=== PATIENT | female | born 1935 | race Caucasian/White ===

== ENCOUNTER 2017-09-08 16:35 | Observation (INO) | payer OTHER, MEDICARE ==
--- NOTE | 2017-09-08 16:41 | PDOC ---
Rapid Medical Evaluation Medical Evaluation: Allergies Allergy/AdvReac Type Severity Reaction Status Date / Time No Known Drug Allergies Allergy Verified 05/10/16 08:00 09/08/17 16:37 I have performed a brief in-person evaluation of this patient. The patient presents with a chief complaint of: throat pain radiating to chest and upper abd x 2 hrs prior to arrival, since improved. H/o thoracic aneurysm ( 4.[address] 02/09), HTN. Sent in by Dr Tasha Saldivar Pertinent physical exam findings:BP 158/109, HR 123, chest/lungs clear otherwise I have ordered the following:labs/cxr/labs/CTA The patient will proceed to the ED for further evaluation.
--- NOTE | 2017-09-08 16:48 | PDOC ---
Attending Attestation - Resident Resident Name: Adriane Lipscomb - ED Attending Attestation I have performed the following: I have examined & evaluated the patient, The case was reviewed & discussed with the resident, I agree w/resident's findings & plan, Exceptions are as noted - HPI HPI: 82 yo F history thoracic aneurysm presents with neck pain radiating to the chest. Associated with palpitations. No cough, fever. Sent by PMD for evaluation. - Physicial Exam PE: GENERAL: Awake, alert, and fully oriented, in no acute distress HEAD: No signs of trauma EYES: PERRLA, EOMI, sclera anicteric, conjunctiva clear ENT: Auricles normal inspection, hearing grossly normal, nares patent, oropharynx clear without exudates. Moist mucosa NECK: Normal ROM, supple, no lymphadenopathy, JVD, or masses LUNGS: Breath sounds equal, clear to auscultation bilaterally. No wheezes, and no crackles HEART: +Tachycardia, normal S1 and S2, no murmurs, rubs or gallops ABDOMEN: Soft, nontender, normoactive bowel sounds. No guarding, no rebound. No masses EXTREMITIES: Normal range of motion, no edema. No clubbing or cyanosis. No cords, erythema, or tenderness NEUROLOGICAL: Cranial nerves II through XII grossly intact. Normal speech, normal gait SKIN: Warm, Dry, normal turgor, no rashes or lesions noted. - Medical Decision Making 09/08/17 17:39 Pt with history of thoracic aortic aneurysm presents with neck pain radiating to chest. Will obtain emergent CTA to r/o ruptured aneurysm.
--- NOTE | 2017-09-08 16:56 | PDOC ---
History of Present Illness - General Chief Complaint: Chest Pain Stated Complaint: PCP SENT Time Seen by Provider: 09/08/17 16:45 History Source: Patient Exam Limitations: No Limitations - History of Present Illness Initial Comments: This is an 82 YOF with h/o thoracic aortic aneurysm (on CT from 01/2017) and HTN (on losartan and a water pill) who was sent to the ED by per PCP Tasha Saldivar for throat tightness radiating to the chest, upper back, and upper abdomen since 2 hours [employer] with improvement since arriving to the ED. She walked into her PCP's office to be seen because of the pain. She notes that the discomfort has improved since the onset but is still there residually. She notes rapid palpitations, but denies any numbness, tingling, focal weakness, SOB, headache, additional neck pain, vision difficulties, or other symptoms. She has never had this pain before and did not take any medications for her symptoms today. Past History - Past Medical History Allergies/Adverse Reactions: Allergies Allergy/AdvReac Type Severity Reaction Status Date / Time No Known Drug Allergies Allergy Verified 09/08/17 16:44 Home Medications: Ambulatory Orders Cholecalciferol (Vitamin D3) [Vitamin D] 1,000 unit PO DAILY 07/31/12 Hydrochlorothiazide [Hctz -] 25 mg PO DAILY 07/31/12 Losartan Potassium 25 mg PO DAILY tablet 11/04/14 Ferrous Sulfate [Feosol] 325 mg PO DAILY 07/21/15 Multivitamins [Multivit ([facility] Formulary)] 1 tab PO DAILY 07/21/15 Aspirin [ASA -] 325 mg PO DAILY@0800 tablet 05/10/16 Anemia: No Asthma: No Cancer: No Cardiac Disorders: No CVA: No COPD: No CHF: No Dementia: No Diabetes: No GI Disorders: No Disorders: No HTN: Yes Hypercholesterolemia: No Liver Disease: No Seizures: No Thyroid Disease: No - Surgical History Abdominal Surgery: No Appendectomy: No Cardiac Surgery: No Cholecystectomy: No Lung Surgery: No Neurologic Surgery: No Orthopedic Surgery: Yes (LEFT KNEE ARTHROSCOPY) - Suicide/Smoking/Psychosocial Hx Smoking History: Never smoked Have you smoked in the past 12 months: No Hx Alcohol Use: Yes (SOCIALLY) Drug/Substance Use Hx: No Substance Use Type: None Hx Substance Use Treatment: No Cardiac Specific PMH - Complaint Specific PMHX Pacemaker: No Review of Systems - Review of Systems Able to Perform ROS?: Yes Constitutional: No: Chills, Fever, Unexplained wgt Loss HEENTM: No: Nose Congestion, Throat Pain Respiratory: No: Cough, Shortness of Breath Cardiac (ROS): Yes: Chest Pain (upper chest tightness), Palpitations ( intermittent) ABD/GI: No: Constipated, Diarrhea, Nausea, Vomiting : No: Burning, Dysuria Musculoskeletal: Yes: Neck Pain (throat tightness). No: Back Pain Integumentary: No: Bruising, Rash Neurological: No: Headache, Numbness, Tingling, Weakness, Dizziness Endocrine: No: Unexplained Weight Gain, Unexplained Weight Loss *Physical Exam - Vital Signs Last Vital Signs Temp Pulse Resp BP Pulse Ox 98.4 F 115 H 20 163/95 98 09/08/17 19:47 09/08/17 19:47 09/08/17 19:47 09/08/17 19:47 09/08/17 19:47 - Physical Exam General Appearance: Yes: Nourished, Appropriately Dressed, Other (well appearing and nontoxic, answering questions appropriately). No: Apparent Distress HEENT: positive: EOMI, RAYSA, Normal Voice, Hearing Grossly Normal. negative: Scleral Icterus (R), Scleral Icterus (L), Muffled/Hoarse voice, Nasal Congestion Neck: positive: Trachea midline, Supple. negative: Tender, Rigid, Carotid bruit Respiratory/Chest: positive: Lungs Clear, Normal Breath Sounds. negative: Respiratory Distress, Crackles, Rhonchi, Stridor, Wheezing Cardiovascular: positive: Regular Rhythm, S1, S2, Tachycardia, Other (carotid pulses visible). negative: Edema, Murmur Comments:: Radial pulses palpated 2+ equal Gastrointestinal/Abdominal: positive: Normal Bowel Sounds, Flat, Soft. negative : Tender, Organomegaly, Pulsatile Mass, Guarding Musculoskeletal: positive: Normal Inspection. negative: Decreased Range of Motion, Vertebral Tenderness Extremity: positive: Normal Capillary Refill, Normal Inspection, Normal Range of Motion. negative: Tender, Cyanosis Integumentary: positive: Normal Color, Dry, Warm. 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 negative: EOM Palsy, Facial Droop , Confused, Disoriented Heart Score/ECG Review - History History: Moderately suspicious - Electrocardiogram EKG: Normal - Age Age: >/= 65 - Risk Factors Risk Factors Heart Score: Yes Hx Hypertension, Yes Hx Obesity Based on the list above the patient has:: 1-2 risk factors - Troponin Troponin: </= normal limit - Score Heart Score - Total: 4 #1 Sinus tachycardia. ED Treatment Course - LABORATORY CBC & Chemistry Diagram: 09/08/17 16:59 09/08/17 16:59 - ADDITIONAL ORDERS Additional order review: Laboratory Results 09/08/17 09/08/17 09/08/17 17:00 16:59 16:59 PT with INR INR Sodium Potassium Chloride Carbon Dioxide Anion Gap BUN Creatinine Creat Clearance w eGFR Random Glucose Calcium Total Bilirubin AST ALT Alkaline Phosphatase Creatine Kinase Creatine Kinase Index CK-MB (CK-2) Troponin I B-Natriuretic Peptide 181.22 Total Protein Albumin Urine Color Ltyellow Urine Appearance Clear Urine pH 5.0 Ur Specific Jbphh 1.017 Urine Protein Negative Urine Glucose (UA) Negative Urine Ketones Negative Urine Blood 1+ H Urine Nitrite Negative Urine Bilirubin Negative Urine Urobilinogen Negative Ur Leukocyte Esterase 2+ H Urine WBC (Auto) 15 Urine RBC (Auto) 12 Ur Epithelial Cells Rare Urine Mucus Rare Blood Type A POSITIVE Antibody Screen Negative 09/08/17 09/08/17 16:59 16:59 PT with INR Cancelled INR Cancelled Sodium 140 Potassium 3.7 Chloride 105 Carbon Dioxide 27 Anion Gap 8 BUN 22 H Creatinine 0.9 Creat Clearance w eGFR > 60 Random Glucose 100 Calcium 9.6 Total Bilirubin 0.8 AST 18 ALT 21 Alkaline Phosphatase 125 H Creatine Kinase 160 Creatine Kinase Index 2.4 CK-MB (CK-2) 3.892 H Troponin I < 0.02 B-Natriuretic Peptide Total Protein 6.9 Albumin 4.2 Urine Color Urine Appearance Urine pH Ur Specific Jbphh Urine Protein Urine Glucose (UA) Urine Ketones Urine Blood Urine Nitrite Urine Bilirubin Urine Urobilinogen Ur Leukocyte Esterase Urine WBC (Auto) Urine RBC (Auto) Ur Epithelial Cells Urine Mucus Blood Type Antibody Screen 09/08/17 16:59 RBC 4.37 MCV 85.9 MCHC 34.2 RDW 14.8 MPV 9.0 Neutrophils % 77.3 Lymphocytes % 14.2 Monocytes % 7.7 Eosinophils % 0.5 Basophils % 0.3 - Medications Given in the ED: ED Medications Discontinued Medications Generic Name Dose Route Start Last Admin Trade Name Lia PRN Reason Stop Dose Admin Acetaminophen 1,000 mg 09/08/17 21:03 09/08/17 21:36 Ofirmev Injection - IVPB 09/08/17 21:04 1,000 mg ONCE ONE Administration Ceftriaxone Sodium 1 gm 09/08/17 18:25 09/08/17 19:01 Rocephin 1gm Ivpb (Pre-Docked) IVPB 09/08/17 18:26 1 gm ONCE ONE Administration Protocol Sodium Chloride 1,000 ml 09/08/17 17:48 09/08/17 17:57 Normal Saline - IV 09/08/17 17:49 1,000 ml ONCE ONE Administration Medical Decision Making - Medical Decision Making This is an 82 YOF with h/o thoracic aortic aneurysm and HTN who p/w throat tightness radiating to chest and upper back. On exam VS notable for tachycardia, BP 159/109, otherwise VS wnl. She is in NAD, has carotid pulses visible bilaterally inferior neck, tachycardic but regular rhythm, no murmur, no midline pulsatile masses. DDX IBNLT acute expansion of aneurysm, AD, GERD, dysphagia, esophagitis, allergic rxn, [employer] REG[employer]RAR, RPA, etc. Ordered is CBCD CMP Cardiac panel UA Cx Chest/Abdomen CTA EKG 1000cc. 09/08/17 18:16 Chest/Abdomen CTA without acute causative pathology; aortic aneurysm unchanged. HEART score 4-6 and patient will be observed. Spoke with Pt's PCP Katey Saldivar who agrees with plan to obs. She requests patient's care go to hospitalists for this obs admission. 09/08/17 19:06 Microblog sent to [facility] for admission. 09/08/17 21:04 Decision to admit order has been placed to Tele Obs. Patient noting mild headache and Ofirmev order placed. Repeat cardiac enzymes ordered. *DC/Admit/Observation/Transfer Diagnosis at time of Disposition: Thoracic aortic aneurysm without rupture Chest pain Qualifiers: Chest pain type: unspecified Qualified Code(s): R07.9 - Chest pain, unspecified Urinary tract infection Qualifiers: Urinary tract infection type: acute cystitis Hematuria presence: with hematuria Qualified Code(s): N30.01 - Acute cystitis with hematuria - Discharge Dispostion Condition at time of disposition: Guarded Admit: Yes - Referrals - Patient Instructions - Post Discharge Activity
[2017-09-08 17:21] LABS: BASO % 0.3 % (0-2.0); EOS % 0.5 % (0-4.5); HEMATOCRIT 37.5 % (32.4-45.2); HEMOGLOBIN 12.8 GM/dL (10.7-15.3); LYMPH % 14.2 % (8-40); MCH 29.4 pg (25.7-33.7); MCHC 34.2 g/dl (32.0-36.0); MEAN CELL VOLUME 85.9 fl (80-96); MONO % 7.7 % (3.8-10.2); NEUT % 77.3 % (42.8-82.8); PLATELET COUNT 210 K/MM3 (134-434); RBC 4.37 M/mm3 (3.60-5.2); RDW 14.8 % (11.6-15.6); WHITE BLOOD COUNT 10.2 K/mm3 (4.0-10.0)
[2017-09-08 17:25] LABS: URINE APPEARANCE CLEAR; URINE BILIRUBIN NEGATIVE (NEGATIVE); URINE BLOOD 1+ (NEGATIVE); URINE COLOR LTYELLOW; URINE GLUCOSE (UA) NEGATIVE (NEGATIVE); URINE KETONE NEGATIVE (NEGATIVE); URINE NITRITE NEGATIVE (NEGATIVE); URINE PROTEIN NEGATIVE (NEGATIVE); URINE UROBILINOGEN NEGATIVE mg/dL (0.2-1.0)
[2017-09-08 17:30] LABS: URINE LEUK ESTERASE 2+ (NEGATIVE)
[2017-09-08 17:35] LABS: EPI CELLS RARE /HPF (FEW); URINE MUCUS RARE
[2017-09-08 17:44] LABS: ALBUMIN 4.2 g/dl (3.4-5.0); ANION GAP 8 (8-16); BLOOD UREA NITROGEN 22 mg/dL (7-18); CALCIUM 9.6 mg/dL (8.5-10.1); CHLORIDE 105 mmol/L (98-107); CO2 27 mmol/L (21-32); GLUCOSE,RANDOM 100 mg/dL (74-106); POTASSIUM 3.7 mmol/L (3.5-5.1); SGPT/ALT 21 U/L (12-78); SODIUM 140 mmol/L (136-145)
[2017-09-08] MEDS ORDERED: SODIUM CHLORIDE 0.9% 500 ML INFUS.BAG IV ONE (17:48)
[2017-09-08 17:49] LABS: ALK PHOS 125 U/L (45-117); BILIRUBIN,TOTAL 0.8 mg/dL (0.2-1.0); CREATININE 0.9 mg/dL (0.55-1.02); SGOT/AST 18 U/L (15-37); TOT PROT 6.9 g/dl (6.4-8.2)
[2017-09-08] MEDS ORDERED: cefTRIAXone 1 GM/50 ML BAG (PRE-DOCKED) IVPB ONE (18:25)
[2017-09-08] MEDS ORDERED: CEFTRIAXONE 1 GM/50 ML BAG ONE (18:57)
[2017-09-08] MEDS ORDERED: ACETAMINOPHEN 1000 MG/100 ML VIAL (NON FORMULARY) IVPB ONE (21:03)
[2017-09-08] MEDS ORDERED: ACETAMINOPHEN INJECTION 100 ML IVPB ONE (21:31)
--- NOTE | 2017-09-08 22:09 | HP ---
CHIEF COMPLAINT: chest pain PCP: Dr. Amanda Saldivar HISTORY OF PRESENT ILLNESS: 82 year old female with a medical history of HTN; aortic aneurysm, presents to the emergency room with chest pain. Patient was driving to store when all of a sudden she felt "like someone punched me in the chest", this was accompanied with feeling of her throat closing up. This pain/pressure is constant; mid/ upper epigastric region. She denies ABEBE, blurry vision, palpitations, sob, leg swelling. She sates her seat belt may have been too tight. ED course notable for tachycardia. Troponin x1 negative. ECG no st t wave changes. Recent Travel: no PAST MEDICAL HISTORY: HTN PAST SURGICAL HISTORY: Social History: Smoking:no Alcohol:no Drugs: no Family History: Allergies No Known Drug Allergies Allergy (Verified 09/08/17 16:44) HOME MEDICATIONS: Home Medications Medication Instructions Recorded Cholecalciferol (Vitamin D3) 1,000 unit PO DAILY 07/31/12 [Vitamin D] Hydrochlorothiazide [Hctz -] 25 mg PO DAILY 07/31/12 Losartan Potassium 25 mg PO DAILY tablet 11/04/14 Ferrous Sulfate [Feosol] 325 mg PO DAILY 07/21/15 Multivitamins [Multivit ([facility] 1 tab PO DAILY 07/21/15 Formulary)] Aspirin [ASA -] 325 mg PO DAILY@0800 tablet 05/10/16 REVIEW OF SYSTEMS as above PHYSICAL EXAMINATION Vital Signs - 24 hr 09/08/17 09/08/17 16:35 19:47 Temperature 98.1 F 98.4 F Pulse Rate 123 H Pulse Rate [ 115 H Apical] Respiratory 18 20 Rate Blood Pressure 159/109 Blood Pressure 163/95 [Left Arm] O2 Sat by Pulse 97 98 Oximetry (%) GENERAL: Awake, alert, and fully oriented, in no acute distress. HEAD: Normal with no signs of trauma. LUNGS: Breath sounds equal, RLL crackels HEART: Regular rate and rhythm, normal S1 and S2 without murmur, rub or gallop. ABDOMEN: Soft, nontender, not distended, normoactive bowel sounds, no guarding, no rebound, no masses. No hepatomegaly or splenomegaly. MUSCULOSKELETAL: Normal range of motion at all joints. No bony deformities or tenderness. No CVA tenderness. UPPER EXTREMITIES: 2+ pulses, warm, well-perfused. No cyanosis. No clubbing. No peripheral edema. LOWER EXTREMITIES: 2+ pulses, warm, well-perfused. No calf tenderness. trace LE edema bl. Laboratory Results - last 24 hr 09/08/17 09/08/17 09/08/17 16:59 16:59 16:59 WBC 10.2 H RBC 4.37 Hgb 12.8 Hct 37.5 MCV 85.9 MCH 29.4 MCHC 34.2 RDW 14.8 Plt Count 210 MPV 9.0 Neutrophils % 77.3 Lymphocytes % 14.2 Monocytes % 7.7 Eosinophils % 0.5 Basophils % 0.3 PT with INR Cancelled INR Cancelled Sodium 140 Potassium 3.7 Chloride 105 Carbon Dioxide 27 Anion Gap 8 BUN 22 H Creatinine 0.9 Creat Clearance w eGFR > 60 Random Glucose 100 Calcium 9.6 Total Bilirubin 0.8 AST 18 ALT 21 Alkaline Phosphatase 125 H Creatine Kinase 160 Creatine Kinase Index 2.4 CK-MB (CK-2) 3.892 H Troponin I < 0.02 B-Natriuretic Peptide Total Protein 6.9 Albumin 4.2 Urine Color Urine Appearance Urine pH Ur Specific Hanna Urine Protein Urine Glucose (UA) Urine Ketones Urine Blood Urine Nitrite Urine Bilirubin Urine Urobilinogen Ur Leukocyte Esterase Urine WBC (Auto) Urine RBC (Auto) Ur Epithelial Cells Urine Mucus Blood Type Antibody Screen 09/08/17 09/08/17 09/08/17 16:59 16:59 17:00 WBC RBC Hgb Hct MCV MCH MCHC RDW Plt Count MPV Neutrophils % Lymphocytes % Monocytes % Eosinophils % Basophils % PT with INR INR Sodium Potassium Chloride Carbon Dioxide Anion Gap BUN Creatinine Creat Clearance w eGFR Random Glucose Calcium Total Bilirubin AST ALT Alkaline Phosphatase Creatine Kinase Creatine Kinase Index CK-MB (CK-2) Troponin I B-Natriuretic Peptide 181.22 Total Protein Albumin Urine Color Ltyellow Urine Appearance Clear Urine pH 5.0 Ur Specific Hanna 1.017 Urine Protein Negative Urine Glucose (UA) Negative Urine Ketones Negative Urine Blood 1+ H Urine Nitrite Negative Urine Bilirubin Negative Urine Urobilinogen Negative Ur Leukocyte Esterase 2+ H Urine WBC (Auto) 15 Urine RBC (Auto) 12 Ur Epithelial Cells Rare Urine Mucus Rare Blood Type A POSITIVE Antibody Screen Negative CT angiogram with and without contrast As on a previous chest CT exam of a 08/24/2016 there is mild fusiform aneurysmal dilatation of the ascending aorta and proximal aortic arch with a 4.3 cm maximum diameter. Continued periodic imaging surveillance is suggested unless otherwise clinically indicated. No CT evidence of aortic dissection. There is no abdominal aortic aneurysm. Interval development of a nonspecific 0.9 x 0.5 cm left lower lobe pulmonary nodule is noted. Additional evaluation utilizing PET/CT/CT is suggested. Alternatively 2-3 month follow-up CT may be considered. The remainder the chest appears unchanged. Mild bilateral lower lobe curvilinear parenchymal scarring. 1.1 cm right renal nonobstructing calculus. 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 ASSESSMENT/PLAN: 82 year old female with a history of aortic aneurysm, presents with chest pain while driving; r/o ACS #Chest pain r/o ACS: PE due to tachycardia -CT angio as above; neg for PE; no change in aneurysm; -tele -troponin trend -cardio monitor -has per patient never been stresses -last echo was on April 2017; get results -cardio consult HTN: cont home meds #aortic aneurysm; -unchanged; f/u with cardio #pulm nodule found on CT -f/u pulm Cardiac diet VTE prophylaxis: heparin sq Disposition: obs tele Case discussed with attending Dr. Richey Problem List - Problem (1) Chest pain Code(s): R07.9 - CHEST PAIN, UNSPECIFIED Qualifiers: Chest pain type: unspecified Qualified Code(s): R07.9 - Chest pain, unspecified Visit type - Emergency Visit Emergency Visit: Yes ED Registration Date: 09/08/17 Care time: The patient presented to the Emergency Department on the above date and was hospitalized for further evaluation of their emergent condition. - New Patient This patient is new to me today: Yes Date on this admission: 09/08/17 - Critical Care Critical Care patient: No Hospitalist Screening - Colonoscopy Questionnaire Colonoscopy Questionnaire: Colonoscopy Questionnaire - Patient: 50 - 75 years old and never had a screening colonoscopy: No History of colon or rectal polyps, or CA: Unknown History of IBD, Crohn's disease or UC: Unknown History of abdominal radiation therapy as a child: Unknown - Relative: 1 with colon or rectal CA, or polyps at age 60 or younger: Unknown Colon or rectal CA diagnosed at age 45 or younger: Unknown Multiple relatives with colon or rectal CA: Unknown - Outcome: Screening Result: Negative Screen
--- NOTE | 2017-09-09 00:20 | PN ---
Teaching Attending Note Name of Resident: Negra Cervantes ATTENDING PHYSICIAN STATEMENT I saw and evaluated the patient. I reviewed the resident's note and discussed the case with the resident. I agree with the resident's findings and plan as documented. SUBJECTIVE: OBJECTIVE: ASSESSMENT AND PLAN: this is an 82 year old female with a history of stable thoracic aortic aneurysm , htn Dl presents with atypical chest pain while driving patient stated that the pain is worse with deep inspiration its located under the rib cage. patient is being admitted to the hospital for atypical pain based on her history r/o dissection of aortic aneurysm vs ACS vs muskuloskeletal vs PE #Chest pain r/o dissection r/o PE due to tachycardia -CT angio as above; neg for PE; no change in aneurysm; -tele -troponin trend -cardio monitor -has per patient never been stresses -last echo was on April 2017; get results -cardio consult ACS trend troponin trend ECG cardiology consult HTN: cont home meds #aortic aneurysm; -unchanged; f/u with cardio #pulm nodule found on CT -f/u pulm
[2017-09-09 01:04] VITALS: BMI 33.2
[2017-09-09] MEDS: HEPARIN NA (PORCINE) 5,000 UNITS/ML 1ML VIAL SQ SCH ×2 (01:09→10:45)
[2017-09-09 07:37] LABS: BASO % 1.1 % (0-2.0); EOS % 1.3 % (0-4.5); HEMATOCRIT 34.8 % (32.4-45.2); HEMOGLOBIN 11.7 GM/dL (10.7-15.3); LYMPH % 28.7 % (8-40); MCH 29.3 pg (25.7-33.7); MCHC 33.8 g/dl (32.0-36.0); MEAN CELL VOLUME 86.7 fl (80-96); MEAN PLT VOLUME 9.6 fl (7.5-11.1); MONO % 10.7 % (3.8-10.2); NEUT % 58.2 % (42.8-82.8); PLATELET COUNT 182 K/MM3 (134-434); RBC 4.01 M/mm3 (3.60-5.2); RDW 15.3 % (11.6-15.6); WHITE BLOOD COUNT 5.3 K/mm3 (4.0-10.0)
[2017-09-09] MEDS ORDERED: ASPIRIN 325 MG TABLET PO SCH (08:00)
[2017-09-09 08:05] LABS: ALBUMIN 3.3 g/dl (3.4-5.0); ANION GAP 9 (8-16); BILIRUBIN,TOTAL 1.2 mg/dL (0.2-1.0); BLOOD UREA NITROGEN 15 mg/dL (7-18); CHLORIDE 105 mmol/L (98-107); CO2 28 mmol/L (21-32); CREATININE 0.8 mg/dL (0.55-1.02); GLUCOSE,RANDOM 98 mg/dL (74-106); MAGNESIUM 2.3 mg/dL (1.8-2.4); POTASSIUM 4.2 mmol/L (3.5-5.1); SGOT/AST 22 U/L (15-37); SGPT/ALT 19 U/L (12-78); SODIUM 142 mmol/L (136-145)
[2017-09-09 08:08] LABS: ALK PHOS 111 U/L (45-117)
[2017-09-09] MEDS ORDERED: ASPIRIN 81 MG CHEWABLE TABLETS PO SCH (08:13)
[2017-09-09] MEDS ORDERED: LOSARTAN POTASSIUM 25 MG TABLET PO SCH (10:00)
[2017-09-09] MEDS ORDERED: HYDROCHLOROTHIAZIDE 25 MG TABLET (FP) PO SCH (10:00)
[2017-09-09 10:24] VITALS: BP 120/68; PULSE 90; TEMP 98
--- NOTE | 2017-09-09 11:11 | CON.CARD ---
Cardiology Consult (text) - Consultation Consultation Note: cc: cp hpi: 82 f hx htn, TAA here with cp. Yesterday noticed pain in throat that moved into chest and upper abd while at rest. Also some sob with this. When she took deep breaths cp was worse. No palps, dizzy, loc, pnd, orthopnea, le edema. Sent to ER. Treated for uti. Pt now feeling better, no further cp, sob. Sees me for cardio. pmh: per hpi psh: knee surgery social: no tob fam: no premature cad ros: per hpi; no nvd, fever, cough, wt loss, gib, hematuria, dysuria, nasal congestion meds: Home Medications Medication Instructions Recorded Cholecalciferol (Vitamin D3) 1,000 unit PO DAILY 07/31/12 [Vitamin D] Hydrochlorothiazide [Hctz -] 25 mg PO DAILY 07/31/12 Losartan Potassium 25 mg PO DAILY tablet 11/04/14 Ferrous Sulfate [Feosol] 325 mg PO DAILY 07/21/15 Multivitamins [Multivit ([facility] 1 tab PO DAILY 07/21/15 Formulary)] Aspirin [ASA -] 325 mg PO DAILY@0800 tablet 05/10/16 pe: Vital Signs Period Temp Pulse Resp BP Sys/Zelaya Pulse Ox Last 24 Hr 97.8 F-98.5 F 87-123 18-20 115-163/68-109 95-98 nad no jvd rrr s1s2 no mrg cta bl nl eff aaox3 no le e/c/c no jaundice diaphoresis pos dp pt, no carotid bruits abd nt nd pos bs Laboratory Last Values WBC 5.3 K/mm3 (4.0-10.0) D 09/09/17 06:59 RBC 4.01 M/mm3 (3.60-5.2) 09/09/17 06:59 Hgb 11.7 GM/dL (10.7-15.3) 09/09/17 06:59 Hct 34.8 % (32.4-45.2) 09/09/17 06:59 MCV 86.7 fl (80-96) 09/09/17 06:59 MCH 29.3 pg (25.7-33.7) 09/09/17 06:59 MCHC 33.8 g/dl (32.0-36.0) 09/09/17 06:59 RDW 15.3 % (11.6-15.6) 09/09/17 06:59 Plt Count 182 K/MM3 (134-434) 09/09/17 06:59 MPV 9.6 fl (7.5-11.1) 09/09/17 06:59 Neutrophils % 58.2 % (42.8-82.8) D 09/09/17 06:59 Lymphocytes % 28.7 % (8-40) D 09/09/17 06:59 Monocytes % 10.7 % (3.8-10.2) H 09/09/17 06:59 Eosinophils % 1.3 % (0-4.5) D 09/09/17 06:59 Basophils % 1.1 % (0-2.0) D 09/09/17 06:59 PT with INR Cancelled 09/08/17 16:59 INR Cancelled 09/08/17 16:59 Sodium 142 mmol/L (136-145) 09/09/17 06:59 Potassium 4.2 mmol/L (3.5-5.1) 09/09/17 06:59 Chloride 105 mmol/L (98-107) 09/09/17 06:59 Carbon Dioxide 28 mmol/L (21-32) 09/09/17 06:59 Anion Gap 9 (8-16) 09/09/17 06:59 BUN 15 mg/dL (7-18) 09/09/17 06:59 Creatinine 0.8 mg/dL (0.55-1.02) 09/09/17 06:59 Creat Clearance w eGFR > 60 (>60) 09/09/17 06:59 Random Glucose 98 mg/dL (74-106) 09/09/17 06:59 Calcium 9.0 mg/dL (8.5-10.1) 09/09/17 06:59 Magnesium 2.3 mg/dL (1.8-2.4) 09/09/17 06:59 Total Bilirubin 1.2 mg/dL (0.2-1.0) H D 09/09/17 06:59 AST 22 U/L (15-37) 09/09/17 06:59 ALT 19 U/L (12-78) 09/09/17 06:59 Alkaline Phosphatase 111 U/L (45-117) 09/09/17 06:59 Creatine Kinase 125 IU/L (26-192) 09/08/17 21:54 Creatine Kinase Index 2.4 % (0.0-5.0) 09/08/17 16:59 CK-MB (CK-2) 3.892 ng/mL (0.5-3.6) H 09/08/17 16:59 Troponin I < 0.02 ng/ml (0.00-0.05) 09/09/17 06:59 B-Natriuretic Peptide 181.22 pg/ml (5-450) 09/08/17 16:59 Total Protein 6.0 g/dl (6.4-8.2) L 09/09/17 06:59 Albumin 3.3 g/dl (3.4-5.0) L 09/09/17 06:59 Urine Color Ltyellow 09/08/17 17:00 Urine Appearance Clear 09/08/17 17:00 Urine pH 5.0 (5.0-8.0) 09/08/17 17:00 Ur Specific Fries 1.017 (1.001-1.035) 09/08/17 17:00 Urine Protein Negative (NEGATIVE) 09/08/17 17:00 Urine Glucose (UA) Negative (NEGATIVE) 09/08/17 17:00 Urine Ketones Negative (NEGATIVE) 09/08/17 17:00 Urine Blood 1+ (NEGATIVE) H 09/08/17 17:00 Urine Nitrite Negative (NEGATIVE) 09/08/17 17:00 Urine Bilirubin Negative (NEGATIVE) 09/08/17 17:00 Urine Urobilinogen Negative mg/dL (0.2-1.0) 09/08/17 17:00 Ur Leukocyte Esterase 2+ (NEGATIVE) H 09/08/17 17:00 Urine WBC (Auto) 15 /hpf (3-5) 09/08/17 17:00 Urine RBC (Auto) 12 /hpf (0-3) 09/08/17 17:00 Ur Epithelial Cells Rare /HPF (FEW) 09/08/17 17:00 Urine Mucus Rare 09/08/17 17:00 Blood Type A POSITIVE 09/08/17 16:59 Antibody Screen Negative 09/08/17 16:59 ecg: sr, nl intervals, no ischemic changes tele: sr cta chest/abd: stable TAA 4.3 cm, no dissection, no chf a/p: 82 f hx htn, TAA here with cp. cp: -atypical symptom -trop negx3, ecg unremarkable -no signs acs -possibly msk related -pt will f/u with me in office for outpt testing htn: -cont home meds TAA: -stable size on ct here, cont bp control
--- NOTE | 2017-09-09 14:30 | DS ---
Physical Exam: SUBJECTIVE: Patient seen and examined Patient is comfortable with no acute distress, no nausea or vomiting, no fever or chills. OBJECTIVE: Vital Signs Temperature 98 F 09/09/17 09:00 Pulse Rate 90 09/09/17 09:00 Respiratory Rate 18 09/09/17 09:00 Blood Pressure 120/68 09/09/17 09:00 O2 Sat by Pulse Oximetry (%) 98 09/09/17 12:29 GENERAL: The patient is awake, alert, and fully oriented, in no acute distress. HEAD: Normal with no signs of trauma. EYES: PERRL, extraocular movements intact, sclera anicteric, conjunctiva clear. ENT: Ears normal, oropharynx clear without exudates, moist mucous membranes. NECK: Trachea midline, full range of motion, supple. LUNGS: Breath sounds equal, clear to auscultation bilaterally, no wheezes, no crackles, no accessory muscle use. HEART: Regular rate and rhythm, S1, S2 without murmur, rub or gallop. ABDOMEN: Soft, nontender, nondistended, normoactive bowel sounds, no guarding, no rebound, no hepatosplenomegaly, no masses. EXTREMITIES: 2+ pulses, warm, well-perfused, no edema. NEUROLOGICAL: Cranial nerves II through XII grossly intact. Normal speech, gait not observed. PSYCH: Normal mood, normal affect. SKIN: Warm, dry, normal turgor, no rashes or lesions noted. LABS CBCD WBC 5.3 K/mm3 (4.0-10.0) D 09/09/17 06:59 RBC 4.01 M/mm3 (3.60-5.2) 09/09/17 06:59 Hgb 11.7 GM/dL (10.7-15.3) 09/09/17 06:59 Hct 34.8 % (32.4-45.2) 09/09/17 06:59 MCV 86.7 fl (80-96) 09/09/17 06:59 MCHC 33.8 g/dl (32.0-36.0) 09/09/17 06:59 RDW 15.3 % (11.6-15.6) 09/09/17 06:59 Plt Count 182 K/MM3 (134-434) 09/09/17 06:59 MPV 9.6 fl (7.5-11.1) 09/09/17 06:59 CMP Sodium 142 mmol/L (136-145) 09/09/17 06:59 Potassium 4.2 mmol/L (3.5-5.1) 09/09/17 06:59 Chloride 105 mmol/L (98-107) 09/09/17 06:59 Carbon Dioxide 28 mmol/L (21-32) 09/09/17 06:59 Anion Gap 9 (8-16) 09/09/17 06:59 BUN 15 mg/dL (7-18) 09/09/17 06:59 Creatinine 0.8 mg/dL (0.55-1.02) 09/09/17 06:59 Creat Clearance w eGFR > 60 (>60) 09/09/17 06:59 Random Glucose 98 mg/dL (74-106) 09/09/17 06:59 Calcium 9.0 mg/dL (8.5-10.1) 09/09/17 06:59 Total Bilirubin 1.2 mg/dL (0.2-1.0) H D 09/09/17 06:59 AST 22 U/L (15-37) 09/09/17 06:59 ALT 19 U/L (12-78) 09/09/17 06:59 Alkaline Phosphatase 111 U/L (45-117) 09/09/17 06:59 Total Protein 6.0 g/dl (6.4-8.2) L 09/09/17 06:59 Albumin 3.3 g/dl (3.4-5.0) L 09/09/17 06:59 CARDIAC ENZYMES Creatine Kinase 125 IU/L (26-192) 09/08/17 21:54 Troponin I < 0.02 ng/ml (0.00-0.05) 09/09/17 06:59 HOS Current Medications Generic Name Dose Route Start Last Admin Trade Name Freq PRN Reason Stop Dose Admin Aspirin 81 mg 09/09/17 08:13 09/09/17 08:29 Asa - PO 81 mg DAILY@0800 MICHAEL Administration Heparin Sodium (Porcine) 5,000 unit 09/09/17 02:00 09/09/17 10:45 Heparin - SQ 5,000 unit Q8H-IV MICHAEL Administration Hydrochlorothiazide 25 mg 09/09/17 10:00 09/09/17 10:45 Hctz - PO 25 mg DAILY MICHAEL Administration Losartan Potassium 25 mg 09/09/17 10:00 09/09/17 10:45 Cozaar - PO 25 mg DAILY MICHAEL Administration Home Medications Medication Instructions Recorded Cholecalciferol (Vitamin D3) 1,000 unit PO DAILY 07/31/12 [Vitamin D] Hydrochlorothiazide [Hctz -] 25 mg PO DAILY 07/31/12 Losartan Potassium 25 mg PO DAILY tablet 11/04/14 Ferrous Sulfate [Feosol] 325 mg PO DAILY 07/21/15 Multivitamins [Multivit ([facility] 1 tab PO DAILY 07/21/15 Formulary)] Aspirin [ASA -] 325 mg PO DAILY@0800 tablet 05/10/16 Urine Test Results Urine Color Ltyellow 09/08/17 17:00 Urine Appearance Clear 09/08/17 17:00 Urine pH 5.0 (5.0-8.0) 09/08/17 17:00 Ur Specific Mathis 1.017 (1.001-1.035) 09/08/17 17:00 Urine Protein Negative (NEGATIVE) 09/08/17 17:00 Urine Glucose (UA) Negative (NEGATIVE) 09/08/17 17:00 Urine Ketones Negative (NEGATIVE) 09/08/17 17:00 Urine Blood 1+ (NEGATIVE) H 09/08/17 17:00 Urine Nitrite Negative (NEGATIVE) 09/08/17 17:00 Urine Bilirubin Negative (NEGATIVE) 09/08/17 17:00 Ur Leukocyte Esterase 2+ (NEGATIVE) H 09/08/17 17:00 Ur Epithelial Cells Rare /HPF (FEW) 09/08/17 17:00 Urine Mucus Rare 09/08/17 17:00 ecg: sr, nl intervals, no ischemic changes tele: sr cta chest/abd: stable TAA 4.3 cm, no dissection, no chf HosPITAL COURSE: Date of Admission:09/08/17 Date of Discharge: 09/09/17 Patient is a 82 female with hx htn, TAA with baseline of 4.3cm presented with cp. # Acute cp: with atypical symptom, with trop negx3, ecg unremarkable, EKG , no ischimic changes. seen by Dr. Cleveland , patient will follow up with for outpt testing. # htn: cont home meds #TAA: stable size of 4.3 cm the baseline. s/p ct here, cont. bp control will discharge the patient, follow up with for UA, and urine culture , since was given one dose of Rocephin, patient has no urinary symptoms. Minutes to complete discharge: 35 Discharge Summary Reason For Visit: UTI,THORACIC AORTIC ANEURYSM W/O RUPTURE,CHEST MARICRUZ Current Active Problems Chest pain (Acute) Thoracic aortic aneurysm without rupture (Acute) Urinary tract infection (Acute) Condition: Guarded - Instructions - Home Medications Comprehensive Discharge Medication List: Ambulatory Orders Cholecalciferol (Vitamin D3) [Vitamin D] 1,000 unit PO DAILY 07/31/12 Hydrochlorothiazide [Hctz -] 25 mg PO DAILY 07/31/12 Losartan Potassium 25 mg PO DAILY tablet 11/04/14 Ferrous Sulfate [Feosol] 325 mg PO DAILY 07/21/15 Multivitamins [Multivit ([facility] Formulary)] 1 tab PO DAILY 07/21/15 Aspirin [ASA -] 325 mg PO DAILY@0800 tablet 05/10/16 This patient is new to me today: Yes Date on this admission: 09/09/17 Emergency Visit: Yes ED Registration Date: 09/08/17 Care time: The patient presented to the Emergency Department on the above date and was hospitalized for further evaluation of their emergent condition. Critical Care patient: No - Discharge Referral Referred to [facility] No
--- NOTE | 2017-09-09 18:43 | EKG ---
Test Reason : Blood Pressure : / mmHG Vent. Rate : 114 BPM Atrial Rate : 114 BPM P-R Int : 154 ms QRS Dur : 080 ms QT Int : 318 ms P-R-T Axes : 032 -14 035 degrees QTc Int : 438 ms SINUS TACHYCARDIA INFERIOR INFARCT , AGE UNDETERMINED ABNORMAL ECG WHEN COMPARED WITH ECG OF 05-OCT-2006 12:39, VENT. RATE HAS INCREASED BY 43 BPM Confirmed by GHAZAL CERVANTES MD ([id number]) on 09/09/2017 6:42:40 PM Referred By: Confirmed By:GHAZAL CERVANTES MD
== END 2017-09-09 15:12 | disposition home or self-care (01) ==
LOC: JER 16:35 → JERBED 20:34 → J4W 23:54
PROVIDERS: ADMIT Internal Medicine; ATTEND Internal Medicine
PROC: 3E03329 Introduction of Other Anti-infective into Peripheral Vein, Percutaneous Approach (ICD-10-PCS; principal; 2017-09-08)
PROC: 3E0337Z Introduction of Electrolytic and Water Balance Substance into Peripheral Vein, Percutaneous Approach (ICD-10-PCS; 2017-09-08)
PROC: 3E033NZ Introduction of Analgesics, Hypnotics, Sedatives into Peripheral Vein, Percutaneous Approach (ICD-10-PCS; 2017-09-08)
PROC: 3E013GC Introduction of Other Therapeutic Substance into Subcutaneous Tissue, Percutaneous Approach (ICD-10-PCS; 2017-09-08)
DX: R07.89 Other chest pain (principal); N30.01 Acute cystitis with hematuria; I71.2 Thoracic aortic aneurysm, without rupture; I10 Essential (primary) hypertension; Z79.82 Long term (current) use of aspirin
CPT/HCPCS: 36415; 71275-TC; 74174-TC; 80053; 81003; 81015; 82550; 82553; 83735; 83880; 84484; 85025; 86850; 86900; 86901; 93005; 93010; 96372; 96374; 96375; 99285-25; G0378; J0131; J1644

== ENCOUNTER 2020-03-16 07:05 | Emergency (ER) | payer OTHER, MEDICARE ==
[2020-03-16 07:21] VITALS: BMI 32.8
[2020-03-16] MEDS ORDERED: SODIUM CHLORIDE 0.9% 1000 ML INFUS.BAG IV ONE (07:35)
[2020-03-16] MEDS ORDERED: morphine CARPU-JECT 4 MG/1 ML DISP.SYRIN IVPUSH ONE (07:35)
[2020-03-16] MEDS ORDERED: ACETAMINOPHEN 1000 MG/100 ML VIAL (NON FORMULARY) IVPB ONE (07:35)
[2020-03-16] MEDS ORDERED: morphine SULFATE 4 MG/ML VIAL ONE (07:43)
[2020-03-16] MEDS ORDERED: ACETAMINOPHEN INJECTION 100 ML IVPB ONE (07:43)
--- NOTE | 2020-03-16 07:52 | PDOC ---
History of Present Illness - General Chief Complaint: Pain, Acute Stated Complaint: BACK PAIN Time Seen by Provider: 03/16/20 07:47 History Source: Patient Exam Limitations: No Limitations - History of Present Illness Initial Comments: 03/16/20 08:14 84F with PMH of HTN, Thoracic Aortic Aneurysm (4.3cm 2 yrs ago), kidney stones, and hysterectomy presents to the ED with sudden onset right flank pain. It's constant and radiates to abdomen. She denies fevers/chills, syncope, cp, sob, n/v/d/c, dysuria, hematuria, or hematochezia. PMH: as in HPI SH: see below Meds: Allergies: NKDA Tob/Etoh/Rec drugs: neg x3 PCP: [facility] GENERAL/CONSTITUTIONAL: No fever or chills. No weakness. HEENT: No change in vision. No ear pain or discharge. No sore throat. CARDIOVASCULAR: No chest pain or shortness of breath RESPIRATORY: No cough, wheezing, or hemoptysis. GASTROINTESTINAL: No nausea, vomiting, diarrhea or constipation. GENITOURINARY: No dysuria, frequency, or change in urination. MUSCULOSKELETAL: No joint or muscle swelling or pain. No neck or back pain. SKIN: No rash NEUROLOGIC: No headache, vertigo, loss of consciousness, or change in strength/sensation. ENDOCRINE: No increased thirst. No abnormal weight change HEMATOLOGIC/LYMPHATIC: No anemia, easy bleeding, or history of blood clots. ALLERGIC/IMMUNOLOGIC: No hives or skin allergy. PE GENERAL: Awake, alert, and fully oriented; no acute distress HEAD: No signs of trauma, normocephalic, atraumatic EYES: PERRLA, EOMI, sclera anicteric, conjunctiva clear ENT: Auricles normal inspection, hearing grossly normal, nares patent, moist mucosa, oropharynx clear without exudates. NECK: Normal ROM, supple, no LAD, JVD, or masses HEART: Regular rate and rhythm, normal S1/S2, no murmurs, rubs or gallops, peripheral pulses normal and equal bilaterally. LUNGS: No distress, speaks full sentences, clear to auscultation bilaterally ABDOMEN: Soft, nontender. No guarding, no rebound. Neg CVA tenderness. EXTREMITIES: Normal inspection, Normal range of motion. +1 pitting edema LE bl. 2+ radial and DP pulses NEUROLOGICAL: CNII-XII grossly intact. Normal speech, no focal sensorimotor deficits SKIN: Warm, Dry, normal turgor, no rashes or lesions noted Assessment and Plan 1. Kidney stone 2. Thoracic aortic aneurysm vs. dissection 3. Mesenteric ischemia Abdias Goetz, PGY1 Emergency Medicine Past History - Medical History Allergies/Adverse Reactions: Allergies Allergy/AdvReac Type Severity Reaction Status Date / Time No Known Drug Allergies Allergy Verified 03/16/20 07:16 Home Medications: Ambulatory Orders Cholecalciferol (Vitamin D3) [Vitamin D] 1,000 unit PO DAILY 07/31/12 Hydrochlorothiazide [Hctz -] 25 mg PO DAILY 07/31/12 Losartan Potassium 25 mg PO DAILY tablet 11/04/14 Ferrous Sulfate [Feosol] 130 mg PO DAILY 07/21/15 Multivitamins [Multivit ([facility] Formulary)] 1 tab PO DAILY 07/21/15 Atorvastatin Calcium [Lipitor] 10 mg PO DAILY 03/16/20 Anemia: No Asthma: No Cancer: No Cardiac Disorders: Yes (thoracic aortic aneurysm) CVA: No COPD: No CHF: No Dementia: No Diabetes: No GI Disorders: No Disorders: No HTN: Yes Hypercholesterolemia: No Liver Disease: No Seizures: No Thyroid Disease: No - Surgical History Abdominal Surgery: No Appendectomy: No Cardiac Surgery: No Cholecystectomy: No Lung Surgery: No Neurologic Surgery: No Orthopedic Surgery: Yes (LEFT KNEE ARTHROSCOPY) - Immunization History Immunization Up to Date: No - Psycho-Social/Smoking History Smoking History: Never smoked Have you smoked in the past 12 months: No - Substance Abuse Hx (Audit-C & DAST Scrn) How often the patient has a drink containing alcohol: Never Score: In Men: 4 or > Positive; In Women: 3 or > Positive: 0 Screen Result (Pos requires Nsg. Audit-10AR): Negative *Physical Exam - Vital Signs Last Vital Signs Temp Pulse Resp BP Pulse Ox 97.7 F 74 18 162/91 100 03/16/20 07:17 03/16/20 07:17 03/16/20 07:17 03/16/20 07:17 03/16/20 07:17 ED Treatment Course - LABORATORY CBC & Chemistry Diagram: 03/16/20 07:37 03/16/20 07:37 Medical Decision Making - Medical Decision Making 03/16/20 08:20 84F with PMH of HTN, Thoracic Aortic Aneurysm (4.3cm 2 yrs ago), kidney stones, and hysterectomy presents to the ED with sudden onset right flank pain. It's constant and radiates to abdomen. She denies fevers/chills, syncope, cp, sob, n/v/d/c, dysuria, hematuria, or hematochezia. Physical exam largely unremarkable, neg CVA tenderness, abdomen is soft/nontende r, no guarding or rebound. DDx: 1. Kidney stones 2. TAA vs dissection 3. Mesenteric ischemia - pain out of proportion to exam Pt has TAA followed with Dr. Fisher, seen last Monday with imaging done. Labs noted for: -CMP showed elevated BUN consistent with baseline, otherwise unremarkable -CBC unremarkable -UA 3+ blood -CTA chest, abd, pelvis: markedly ectatic thoracic aorta w/o dissection, large right renal pelvic calculus w/o hydronephrosis. Mild dilation of Right ureter w/o obstruction. -Pt stable for discharge and to follow up with urologist and PCP. Discharge - Discharge Information Problems reviewed: Yes Clinical Impression/Diagnosis: Renal colic - Admission No - Follow up/Referral Referrals: Jairon Fisher [Primary Care Provider] - - Patient Discharge Instructions Patient Printed Discharge Instructions: Kidney Stones -- Adult Additional Instructions: You were seen in the ED for complaints of right side and abdominal pain. In the ED you were evaluated with CT scan of chest and abdomen. Your results showed thoracic aneurysm consistent with size on previous scans, and right sided kidney stone. There does not appear to be an acute need for immediate hospitalization. You are advised to follow up with your Primary Care Physician within 1 week, as well as your Urologist. Return to the ED immediately if you experience fevers or chills or nausea and vomiting and unable to tolerate drinking fluids. - Post Discharge Activity
[2020-03-16 08:18] LABS: ALBUMIN 3.8 g/dl (3.4-5.0); BILIRUBIN,TOTAL 0.6 mg/dL (0.2-1); BLOOD UREA NITROGEN 22.5 mg/dL (7-18); CALCIUM 9.2 mg/dL (8.5-10.1); CREATININE 0.9 mg/dL (0.55-1.3); POTASSIUM 3.9 mmol/L (3.5-5.1); TOT PROT 6.4 g/dl (6.4-8.2)
--- OUTSIDE RECORDS SUMMARY | 2020-03-16 09:03 | XMS ---
:1935 Author Organization [facility] Care Team Providers Name Role Phone Bao Saldivar MD Unavailable Unavailable Jairon Fisher MD Unavailable Unavailable Re-disclosure Warning The records that you are about to access may contain information from federally- assisted alcohol or drug abuse programs. If such information is present, then the following federally mandated warning applies: This information has been disclosed to you from records protected by federal confidentiality rules (42 CFR part 2). The federal rules prohibit you from making any further disclosure of this information unless further disclosure is expressly permitted by the written consent of the person to whom it pertains or as otherwise permitted by 42 CFR part 2. A general authorization for the release of medical or other information is NOT sufficient for this purpose. The Federal rules restrict any use of the information to criminally investigate or prosecute any alcohol or drug abuse patient.The records that you are about to access may contain highly sensitive health information, the redisclosure of which is protected by Article 27-F of the [facility] Public Health law. If you continue you may haveaccess to information: Regarding HIV / AIDS; Provided by facilities licensed or operated by the [facility] Office of Mental Health; or Provided by the [facility] Office for People With Developmental Disabilities. If such information is present, then the following [facility] mandated warning applies: This information has been disclosed to you from confidential records which are protected by state law. State law prohibits you from making any further disclosure of this information without the specific written consent of the person to whom it pertains, or as otherwise permitted by law. Any unauthorized further disclosure in violation of state law may result in a fine or nursing home sentence or both. A general authorization for the release of medical or other information is NOT sufficient authorization for further disclosure. Allergies and Adverse Reactions Type Description Substance Reaction Status Data Source(s ) Drug allergy No Known Allergies No Known Allergies NONE [facility] Encounters Encounter Providers Location Date Indications Data Source(s ) Outpatient Attender: Jairon 12/26/2019 LUNG NODULE Guadalupe Fisher MD 12:45:00 PM Hospital EDT LUNG NODULE Outpatient Attender: Jairon 11/09/2018 12:26:00 PM NODULE Guadalupe Fisher MD EDT Hospital NODULE Outpatient Attender: Bao 09/20/2018 01:26:00 PERSONAL HI STORY Guadalupe Saldivar MD EDT - 09/20/2018 COLONIC POLYPS H ospital 02:26:00 PM EDT PERSONAL HISTORY COLONIC POLYPS Medications Medication Brand Start Product Dose Route Administrative Pharmacy [facility] Indications Reaction Description Data Name Date Form Instructions Instructions Source(s) Azithromyci Azithr 03/22/ TABLET 500 complet Once White n 250 MG omycin 2014 mg ed Emily Oral Tablet (Zithr 12:00: Hosp ital [Zithromax] omax 00 AM Azithromyci Z-Nathan EDT n 250MG* (Zithromax ) 250 Z-Nathan Mg 250MG*) 250 Tab, Mg Tab, 500 500 Mg Mg Oral Oral Azithromyci Azithr 03/22/ TABLET 500 complet Once White n 250 MG omycin 2014 mg ed Emily Oral Tablet (Zithr 12:00: Hosp ital [Zithromax] omax 00 AM Azithromyci Z-Nathan EDT n 250MG* (Zithromax ) 250 Z-Nathan Mg 250MG*) 250 Tab, Mg Tab, 500 500 Mg Mg Oral Oral Azithromyci Azithr 03/22/ TABLET 250 complet Ray y White n 250 MG omycin 2014 mg ed Emily Oral Tablet (Zithr 12:00: Hosp ital [Zithromax] omax 00 AM Azithromyci Z-Nathan EDT n 250MG* (Zithromax ) 250 Z-Nathan Mg 250MG*) 250 Tab, Mg Tab, 250 250 Mg Mg Oral Oral Azithromyci Azithr 03/22/ TABLET 250 complet Ray y White n 250 MG omycin 2014 mg ed Emily Oral Tablet (Zithr 12:00: Hosp ital [Zithromax] omax 00 AM Azithromyci Z-Nathan EDT n 250MG* (Zithromax ) 250 Z-Nathan Mg 250MG*) 250 Tab, Mg Tab, 250 250 Mg Mg Oral Oral Oxycodone/A 01/16/ TABLET 1 complet Every 4-6 White cetaminophe 2012 {Caps ed Hours as [place] ins n (Percocet 12:00: ule} needed Hosp ital 5-325 Mg 00 AM Tablet) 1 EDT Tab Tablet, 1 Tab Oral Oxycodone/A 01/16/ TABLET 1 complet Every 4-6 White cetaminophe 2012 {Caps ed Hours as [place] ins n (Percocet 12:00: ule} needed Hosp ital 5-325 Mg 00 AM Tablet) 1 EDT Tab Tablet, 1 Tab Oral Glucosa Dawson TABLET 1 complet Daily Whi te 2KCL/Chondr {Each ed Emily oitin Dawosn } Hospital (Glucosamin e Chondroitin Caplet) 1 Each Tablet, 1 Each Oral Cholecalcif Cholec CAPSULE 1000 complet Daily White arielle 1000 alcife ed Emily UNT Oral [facility] Capsule (Vitam Cholecalcif in D arielle 1000 (Vitamin D Units 1000 Units Cap) Cap) 1,000 1,000 Unit Unit Capsule, Capsul 1000 Unit e, Oral 1000 Unit Oral Losartan Losart TABLET 25 mg complet Daily Wh ite Potassium an ed Emily 25 MG Oral [facility] Tablet ium [Cozaar] (Cozaa Losartan r*) 25 Potassium Mg Tab (Cozaar*) 25 Mg Tab Cholecalcif Cholec CAPSULE 1000 complet Daily White arielle 1000 alcife ed Emily UNT Oral [facility] Capsule (Vitam Cholecalcif in D arielle 1000 (Vitamin D Units 1000 Units Cap) Cap) 1,000 1,000 Unit Unit Capsule, Capsul 1000 Unit e, Oral 1000 Unit Oral Hydrochloro Hydroc TABLET 25 mg complet Daily White thiazide 25 hlorot ed Emily MG Oral [facility] Hospital Tablet e Hydrochloro (Oreti thiazide c (Oretic Tablet Tablet*) 25 *) 25 Mg Tab Mg Tab Hydrochloro Hydroc CAPSULE 25 mg complet Ray y White thiazide hlorot ed Emily 12.5 MG [facility] Hospital Oral e Capsule (Micro Hydrochloro zide thiazide 12.5MG (Microzide Cap*) 12.5MG 12.5 Cap*) 12.5 Mg Mg Capsule Capsul e Prednisone TABLET, 2.5 complet Daily Wh ite (Goldie) 2 DELAYED mg ed Emily Mg RELEASE Hospital Tablet., 2.5 Mg Oral Glucosa Dawson TABLET 1 complet Daily Whi te 2KCL/Chondr {Each ed Emily oitin Dawson } Hospital (Glucosamin e Chondroitin Caplet) 1 Each Tablet, 1 Each Oral Losartan Losart TABLET 25 mg complet Daily Wh ite Potassium an ed Emily 25 MG Oral [facility] Tablet ium [Cozaar] (Cozaa Losartan r*) 25 Potassium Mg Tab (Cozaar*) 25 Mg Tab Enalapril TABLET 5 mg complet Daily Whit e Maleate ed Emily (Vasotec*) Hospital 5 Mg Tab, 5 Mg Oral Aspirin 81 Aspiri ENTERIC 81 mg complet Daily White MG Delayed n COATED ed Emily Release (Aspir TABLET Hospital Oral Tablet in Aspirin Enteri (Aspirin c Enteric Coated Coated*) 81 *) 81 Mg Tabec Mg Tabec Hydrochloro Hydroc CAPSULE 25 mg complet Ray y White thiazide hlorot ed Emily 12.5 MG hiazid Hospital Oral e Capsule (Micro Hydrochloro zide thiazide 12.5MG (Microzide Cap*) 12.5MG 12.5 Cap*) 12.5 Mg Mg Capsule, Capsul 25 Mg Oral e, 25 Mg Oral Ferrous TABLET 236 complet Daily White Gluconate mg ed Emily (Iron) 236 Hospital Mg Tablet, 236 Mg Oral Prednisone TABLET, 2.5 complet Daily Wh ite (Goldie) 2 DELAYED mg ed Emily Mg RELEASE Hospital Tablet., 2.5 Mg Oral atorvastati Atorva TABLET 10 mg complet Daily White n 10 MG statin ed Emily Oral Tablet [facility] [Lipitor] m Atorvastati (Lipit n Calcium or*) (Lipitor*) 10 Mg 10 Mg Tab Tab Ferrous TABLET 236 complet Daily White Gluconate mg ed Emily (Iron) 236 Hospital Mg Tablet, 236 Mg Oral Enalapril TABLET 5 mg complet Daily Whit e Maleate ed Emily (Vasotec*) Hospital 5 Mg Tab, 5 Mg Oral Aspirin ENTERIC 81 mg complet Daily Whit e (Aspirin COATED ed Emily Enteric TABLET Hospital Coated*) 81 Mg Tabec, 81 Mg Oral Aspirin ENTERIC 81 mg complet Daily Whit e (Aspirin COATED ed Emily Enteric TABLET Hospital Coated*) 81 Mg Tabec, 81 Mg Oral atorvastati Atorva TABLET 10 mg complet Daily White n 10 MG statin ed Emily Oral Tablet [facility] [Lipitor] m Atorvastati (Lipit n Calcium or*) (Lipitor*) 10 Mg 10 Mg Tab Tab Insurance Providers Payer name Policy type Policy ID Covered Covered alliance party's Policy P sloan / Coverage alliance party ID relationship to [facility] Inf ormation type vincent [employer] [id number] SP [id number] CARE [employer] MEDICARE [id number] SP [id number] [employer] [id number] PT [id number] [employer] MED[employer]ARE [id number] PT [id number] Problems, Conditions, and Diagnoses Code Display Name Description Problem Type Effective Dates Data Source(s) R91.8 Other nonspecific R91.8 Diagnosis 12/26/2019 Guadalupe vuong abnormal finding of 12:45:[address] [facility] lung field J47.9 Bronchiectasis, J47.9 Diagnosis 11/09/2018 [place] ins uncomplicated 12:26:00 PM EDT Hospit al Surgeries/Procedures Procedure Description Date Indications Data Source(s) Colonoscopy Colonoscopy 09/20/2018 12:00:00 AM EDT [facility] Social History Code Duration Value Status Description Data Source(s ) Smoking Unknown if ever completed Unknown if ever Whit e [facility] smoked smoked Hospital Smoking Unknown if ever completed Unknown if ever [facility] smoked smoked Hospital Patient Treatment Plan of Care Planned Activity Planned Date Details Description Data Source (s) Azithromycin 250 MG Oral 03/22/2014 i te [facility] Tablet [Zithromax] 12:00:00 AM EDT Hospit al Azithromycin 250 MG Oral 03/22/2014 i te Emily Tablet [Zithromax] 12:00:00 AM EDT Hospit al Azithromycin 250 MG Oral 03/22/2014 [facility] te Emily Tablet [Zithromax] 12:00:00 AM EDT Hospit al Azithromycin 250 MG Oral 03/22/2014 [facility] te Emily Tablet [Zithromax] 12:00:00 AM EDT Hospit al Oxycodone/Acetaminophen 01/16/2013 Whit e [facility] (Percocet 5-325 Mg Tablet) 1 12:00:00 AM EDT Hospital Tab Tablet, 1 Tab Oral Oxycodone/Acetaminophen 01/16/2013 Whit e [facility] (Percocet 5-325 Mg Tablet) 1 12:00:00 AM EDT Hospital Tab Tablet, 1 Tab Oral Prednisone (Goldie) 2 Mg Whit e Emily Tablet.dr, 2.5 Mg Oral Hospi nighat Hydrochlorothiazide 12.5 MG [place] Oral Capsule [facility] Glucosa Dawson 2KCL/Chondroitin [place] (Glucosamine Chondroitin Hospital Caplet) 1 Each Tablet, 1 Each Oral Ferrous Gluconate (Iron) 236 [place] Mg Tablet, 236 Mg Oral Hospi nighat Enalapril Maleate (Vasotec*) [place] 5 Mg Tab, 5 Mg Oral Hospital Cholecalciferol 1000 UNT Oral [place] Capsule [facility] Aspirin (Aspirin Enteric Whi te Emily Coated*) 81 Mg Tabec, 81 Mg Hospital Oral Losartan Potassium 25 MG Oral [place] Tablet [Cozaar] Hospital Hydrochlorothiazide 25 MG Wh ite Emily Oral Tablet Hospital atorvastatin 10 MG Oral Whit e Emily Tablet [Lipitor] Hospital Aspirin 81 MG Delayed Release [place] Oral Tablet Hospital Prednisone (Goldie) 2 Mg Whit e Emily Tablet.dr, 2.5 Mg Oral Hospi nighat Glucosa Dawson 2KCL/Chondroitin [place] [facility] (Glucosamine Chondroitin Hospital Caplet) 1 Each Tablet, 1 Each Oral Ferrous Gluconate (Iron) 236 [place] Mg Tablet, 236 Mg Oral Hospi nighat Enalapril Maleate (Vasotec*) [place] 5 Mg Tab, 5 Mg Oral Hospital Cholecalciferol 1000 UNT Oral [place] Capsule [facility] Aspirin (Aspirin Enteric Whi te Emily Coated*) 81 Mg Tabec, 81 Mg Hospital Oral Losartan Potassium 25 MG Oral [place] Tablet [Cozaar] [facility] Hydrochlorothiazide 12.5 MG [place] Oral Capsule Hospital atorvastatin 10 MG Oral Whit e Emily Tablet [Lipitor] Hospital
[2020-03-16 09:12] LABS: BASO % 0.8 % (0-2.0); EOS % 1.8 % (0-4.5); HEMATOCRIT 36.4 % (32.4-45.2); HEMOGLOBIN 12.1 GM/dL (10.7-15.3); LYMPH % 22.7 % (8-40); MCH 29.3 pg (25.7-33.7); MCHC 33.2 g/dl (32.0-36.0); MEAN CELL VOLUME 88.1 fl (80-96); MEAN PLT VOLUME 10.4 fl (7.5-11.1); MONO % 8.5 % (3.8-10.2); NEUT % 66.2 % (42.8-82.8); PLATELET COUNT 194 K/MM3 (134-434); RBC 4.13 M/mm3 (3.60-5.2); RDW 14.9 % (11.6-15.6); WHITE BLOOD COUNT 7.5 K/mm3 (4.0-10.0)
--- NOTE | 2020-03-16 09:25 | PDOC ---
Attending Attestation - Resident Resident Name: Abdias Goetz - ED Attending Attestation I have performed the following: I have examined & evaluated the patient, The case was reviewed & discussed with the resident, I agree w/resident's findings & plan, Exceptions are as noted - HPI HPI: 03/16/20 10:54 84 years old past medical history significant hypertension thoracic aortic aneurysm 4.3 cm had imaging done last month with her PCP kidney stones hysterectomy presents with sudden onset flank pain consistent with previous kidney stones right flank radiates to right upper quadrant denies fever chills chest pain shortness of breath nausea vomiting. Pain is severe 10 out of 10 persistent constant no exacerbating or alleviating factors. - Physicial Exam PE: 03/16/20 10:54 Vitals: Triage Vital signs reviewed General Appearance: No acute distress, well nourished well developed, Head: Atraumatic, Cardiac: Regular rate and rhythym, no murmurs, no rubs, no gallops, Lungs: Clear to auscultation bilateral, good air movement bilaterally, Abdomen: Soft, non distended, normal bowel sounds, non tender to palpation Extremities: Full range of motion to all extremities, no cyanosis, clubbing, or edema Skin: Warm and dry, no rashes or lesions, no rash, no petechiae Neuro: AOX3; cranial Nerves 2-12 grossly intact, strength intact to all extremities, sensation intact to all extremities, gait normal Psych: Normal mood, normal affect - Medical Decision Making 03/16/20 10:55 Status post IV pain medication patient feels much better CAT scan demonstrates evidence of recently passed stone hydroureter but no obvious obstruction patient is now pain-free laboratory analysis unremarkable urinalysis notable for RBCs No significant change no evidence of aneurysm or dissection on CTA Findings discussed at length with patient patient feels much better will DC home with urology and PCP follow-up Findings, need for follow-up and strict return instructions discussed with patient. Discharge - Discharge Information Problems reviewed: Yes Clinical Impression/Diagnosis: Renal colic - Follow up/Referral Referrals: Jairon Fisher [Primary Care Provider] - - Patient Discharge Instructions - Post Discharge Activity
[2020-03-16 10:45] LABS: EPI CELLS 3 /uL (0-25.1); HYALINE CASTS 0 /uL (0-3.1); PH,URINE 5.5 (5.0-8.0); URINE APPEARANCE CLEAR; URINE BACTERIA 9 /uL (0-1359); URINE BILIRUBIN NEGATIVE (NEGATIVE); URINE COLOR YELLOW; URINE GLUCOSE (UA) NEGATIVE (NEGATIVE); URINE KETONE NEGATIVE (NEGATIVE); URINE LEUK ESTERASE NEGATIVE (NEGATIVE); URINE NITRITE NEGATIVE (NEGATIVE); URINE PROTEIN NEGATIVE (NEGATIVE); URINE RBC 2043 /uL (0-23.9); URINE UROBILINOGEN 0.2 mg/dL (0.2-1.0); URINE WBC 11 /uL (0-25.8)
[2020-03-16 12:01] VITALS: BP 140/68; PULSE 61; TEMP 97.8
== END 2020-03-16 11:55 | disposition home or self-care (01) ==
LOC: SUPCPDRO 07:05 → JER 07:05
PROC: 3E033NZ Introduction of Analgesics, Hypnotics, Sedatives into Peripheral Vein, Percutaneous Approach (ICD-10-PCS; principal; 2020-03-16)
PROC: 3E033GC Introduction of Other Therapeutic Substance into Peripheral Vein, Percutaneous Approach (ICD-10-PCS; 2020-03-16)
DX: N23 Unspecified renal colic (principal)
CPT/HCPCS: 36415; 71275-TC; 74174-TC; 80053; 81003; 85025; 87086; 99284-25; J0131; Q9967